=== PATIENT | male | born 1975 | race Caucasian/White ===

== ENCOUNTER 2017-01-27 23:44 | Inpatient (IN) | payer BC ==
[~2017-01-27] VITALS: Ht 180.3 cm; Wt 65.0 kg
--- NOTE | ~2017-01-27 | EKG ---
[place], [place] ELECTROCARDIOGRAM REPORT NAME: YURY AWAN SR UNIT #: [id number] ROOM: 503 DOCTOR: MINI ALMODOVAR MD BIRTHDATE: [birth year] DOS: 01/28/2017 TIME: 00:29 a.m. Normal sinus rhythm at rate of 63. Prominent voltage but without criteria for left ventricular hypertrophy. Normal electrocardiogram. MINI ALMODOVAR MD CM:EKGRPT:ELECTROCARDIOGRAM REPORT [id number] MINI ALMODOVAR MD
[~2017-01-27 23:44] MED LIST: ANTIVERT25 MG PO; DAYPRO600 M1 PO; LOPRESSOR50 MG PO
[2017-01-27 23:49] VITALS: BP 164/98
[2017-01-28] VITALS (11 sets, daily range): BP systolic 134–166; BP diastolic 84–110
[2017-01-28 00:27] LABS: BASO % 0.6 % (0.0-1.0); EOS # 0.1 10*3/uL (0.0-0.4); EOS % 1.6 % (1.0-4.0); HEMATOCRIT 41.2 % (42.0-52.0); HEMOGLOBIN 14.2 g/dl (14.0-18.0); LYMPH % 40.2 % (27.0-41.0); MEAN CELL VOLUME 90.7 fl (80.0-94.0); MEAN CORPUSCULAR HGB 31.3 pg (27.0-31.0); MEAN CORPUSCULAR HGB CONC 34.5 g/dl (33.0-37.0); MEAN PLATELET VOLUME 9.4 fl (9.6-12.3); MONO # 0.4 10*3/uL (0.1-1.0); MONO % 7.1 % (3.0-9.0); NEUT # 2.5 10*3/uL (2.3-7.9); NEUT % 50.3 % (47.0-73.0); PLATELET COUNT AUTOMATED 183 10*3/uL (130-400); RED BLOOD COUNT 4.54 10*6/uL (4.50-5.90); RED CELL DISTRI WIDTH 12.6 % (0-14.5); WHITE BLOOD COUNT 4.9 10*3/uL (4.8-10.8)
[2017-01-28 00:49] LABS: ALBUMIN 3.8 gm/dl (3.1-4.5); ALKALINE PHOSPHATASE 40 U/L (45-117); BILIRUBIN, TOTAL 0.3 mg/dl (0.2-1.0); BUN 15 mg/dl (7-24); CARBON DIOXIDE 29 mmol/L (21-32); CHLORIDE 103 mmol/L (98-107); EST GLOM FILT AFRICAN AMERICAN > 60 ml/min; GLUCOSE 88 mg/dL (65-99); POTASSIUM 3.3 mmol/L (3.5-5.1); SGOT/AST 13 IU/L (3-35); SGPT/ALT 21 U/L (12-78); SODIUM 140 mmol/L (136-145); TOTAL PROTEIN 6.9 gm/dL (6.4-8.2)
[2017-01-28 00:52] LABS: TROPONIN I < 0.015 ng/ml (<0.045)
[2017-01-28 06:04] LABS: BASO % 0.7 % (0.0-1.0); EOS # 0.1 10*3/uL (0.0-0.4); EOS % 1.6 % (1.0-4.0); HEMATOCRIT 43.1 % (42.0-52.0); HEMOGLOBIN 14.6 g/dl (14.0-18.0); LYMPH # 1.7 10*3/uL (1.3-4.4); LYMPH % 37.6 % (27.0-41.0); MEAN CELL VOLUME 91.7 fl (80.0-94.0); MEAN CORPUSCULAR HGB 31.1 pg (27.0-31.0); MEAN CORPUSCULAR HGB CONC 33.9 g/dl (33.0-37.0); MEAN PLATELET VOLUME 9.6 fl (9.6-12.3); MONO # 0.4 10*3/uL (0.1-1.0); MONO % 7.8 % (3.0-9.0); NEUT # 2.3 10*3/uL (2.3-7.9); NEUT % 52.1 % (47.0-73.0); PLATELET COUNT AUTOMATED 184 10*3/uL (130-400); RED CELL DISTRI WIDTH 12.8 % (0-14.5); WHITE BLOOD COUNT 4.5 10*3/uL (4.8-10.8)
[2017-01-28 06:14] LABS: CPK 115 U/L (39-308); TROPONIN I < 0.015 ng/ml (<0.045)
[2017-01-28 06:34] LABS: BILIRUBIN NEGATIVE (NEGATIVE); BLOOD NEGATIVE (NEGATIVE); CLARITY CLEAR (CLEAR); COLOR YELLOW (YELLOW); GLUCOSE NEGATIVE (NEGATIVE); KETONE NEGATIVE (NEGATIVE); LEUKO ESTERASE NEGATIVE (NEGATIVE); NITRITE NEGATIVE (NEGATIVE); PH 6.5 (5.0-9.0); PROTEIN NEGATIVE (NEGATIVE); SPECIFIC GRAVITY <= 1.005 (1.005-1.030); UROBILINOGEN 0.2 E.U./dl (0.2-1.0)
[2017-01-28 06:35] LABS: ALBUMIN 3.8 gm/dl (3.1-4.5); BILIRUBIN, TOTAL 0.4 mg/dl (0.2-1.0); BUN 14 mg/dl (7-24); CARBON DIOXIDE 30 mmol/L (21-32); CHLORIDE 104 mmol/L (98-107); CHOLESTEROL 212 mg/dL (<200); EST GLOM FILT AFRICAN AMERICAN > 60 ml/min; GLUCOSE 83 mg/dL (65-99); MAGNESIUM 2.3 mg/dL (1.5-2.1); PHOSPHOROUS 2.9 mg/dL (2.5-4.9); POTASSIUM 4.2 mmol/L (3.5-5.1); SGOT/AST 12 IU/L (3-35); SGPT/ALT 20 U/L (12-78); SODIUM 138 mmol/L (136-145); TOTAL PROTEIN 7.1 gm/dL (6.4-8.2); TRIGLYCERIDES 46 mg/dl (<150); VLDL CHOLESTEROL 9 mg/dL (6-40)
[2017-01-28 06:36] LABS: PROTHROMBIN TIME 10.4 SECONDS (9.0-12.4)
[2017-01-28 06:41] LABS: ALKALINE PHOSPHATASE 37 U/L (45-117); FREE T4 1.02 ng/dl (0.76-1.46); HDL CHOLESTEROL 78 mg/dl (40-60); LDL CHOLESTEROL 125 mg/dL (9-159)
[2017-01-28 06:41] LABS: BACTERIA TRACE; WBC 0-2 wbc/hpf (0-5)
[2017-01-28 06:42] LABS: URINE REFLEX COMMENT NO (NO)
[2017-01-28 07:22] LABS: VITAMIN D, 25-HYDROXY 27.7 ng/mL (30-100)
[2017-01-28 07:23] LABS: FOLIC ACID 6.72 ng/mL (>5.38)
[2017-01-28 12:16] LABS: CKMB 2.1 ng/ml (0.5-3.6); CPK 93 U/L (39-308)
[2017-01-28 12:19] LABS: TROPONIN I < 0.015 ng/ml (<0.045)
[2017-01-28] MEDS ORDERED: LISINOPRIL20 MG PO (14:10)
[2017-01-28] MEDS ORDERED: D-1000 185 MG-11 TAB PO (14:10)
== END 2017-01-28 15:10 | disposition home or self-care (01) | DRG 305 ==
LOC: ED 23:44 → EDHOLD 01-28 02:20 → 5E 01-28 02:27
PROVIDERS: Emergency Medicine Emergency Medical Services; Hospitalist
DX: I16.0 Hypertensive urgency (principal); E83.41 Hypermagnesemia; I10 Essential (primary) hypertension; R07.9 Chest pain, unspecified; E87.6 Hypokalemia; Z87.891 Personal history of nicotine dependence; Z82.49 Family history of ischemic heart disease and other diseases of the circulatory system; Z84.89 Family history of other specified conditions; Z79.899 Other long term (current) drug therapy; Q62.7 Congenital vesico-uretero-renal reflux

== ENCOUNTER 2024-04-04 14:27 | Emergency (ER) | payer OTHER ==
[~2024-04-04] VITALS: Wt 72.6 kg
[~2024-04-04 14:27] MED LIST changes: +D-1000 185 MG-11 TAB PO; +LISINOPRIL20 MG PO
[2024-04-04] MEDS ORDERED: Tdap Vaccine 0.5 ML SYR (Adult Vaccine) IM ONE (16:10)
[2024-04-04] MEDS ORDERED: Lidocaine Hydrochloride 2 ML AMP SC ONE (16:25)
== END 2024-04-04 17:46 | disposition home or self-care (01) ==
LOC: ED 14:27
DX: S61.411A Laceration without foreign body of right hand, initial encounter (principal); I10 Essential (primary) hypertension; E83.41 Hypermagnesemia; E87.6 Hypokalemia; Z98.890 Other specified postprocedural states; W25.XXXA Contact with sharp glass, initial encounter; Y93.89 Activity, other specified; Y92.89 Other specified places as the place of occurrence of the external cause; Y99.8 Other external cause status

== ENCOUNTER → 2024-05-10 | Outpatient (CLI) | payer OTHER ==
[2024-05-10 08:44] LABS: BASO % 0.5 % (0.0-1.0); EOS # 0.1 10*3/uL (0.0-0.4); EOS % 1.8 % (1.0-4.0); HEMATOCRIT 41.2 % (42.0-52.0); LYMPH # 1.2 10*3/uL (1.3-4.4); LYMPH % 30.3 % (27.0-41.0); MEAN CELL VOLUME 90.9 fl (80.0-94.0); MEAN CORPUSCULAR HGB 30.9 pg (27.0-31.0); MEAN PLATELET VOLUME 9.3 fl (9.6-12.3); MONO # 0.4 10*3/uL (0.1-1.0); MONO % 9.5 % (3.0-9.0); NEUT # 2.2 10*3/uL (2.3-7.9); NEUT % 57.6 % (47.0-73.0); PLATELET COUNT AUTOMATED 184 10*3/uL (130-400); RED BLOOD COUNT 4.53 10*6/uL (4.50-5.90); RED CELL DISTRI WIDTH 12.7 % (0-14.5); WHITE BLOOD COUNT 3.8 10*3/uL (4.8-10.8)
[2024-05-10 09:29] LABS: VITAMIN D, 25-HYDROXY 28.3 ng/mL (30-100)
[2024-05-10 09:53] LABS: ALKALINE PHOSPHATASE 40 U/L (46-116); BUN 14 mg/dl (9-23); CHLORIDE 102 mmol/L (98-107); CHOLESTEROL 225 mg/dL (<200); LDL CHOLESTEROL 156 mg/dL (9-159); POTASSIUM 4.4 mmol/L (3.4-5.1); SGPT/ALT 21 U/L (5-49); TOTAL PROTEIN 7.1 gm/dL (6.0-8.0); TRIGLYCERIDES 67 mg/dl (<150)
== END | disposition home or self-care (01) ==
LOC: LAB 08:09
PROVIDERS: ATTEND Internal Medicine
DX: I10 Essential (primary) hypertension (principal); E78.5 Hyperlipidemia, unspecified; E56.9 Vitamin deficiency, unspecified